=== PATIENT | female | born 1985 | race Caucasian/White ===

== ENCOUNTER 2017-04-04 13:49 | Emergency (ER) | payer OTHER ==
[~2017-04-04] VITALS: Ht 172.7 cm; Wt 68.2 kg
[~2017-04-04 13:49] MED LIST: HYDROCODONE; IBUPROFEN; OXYCODONE; TYLENOL
[2017-04-04 14:00] VITALS: BP 195/116; PULSE 75; RESP 16; O2SAT 100
--- NOTE | 2017-04-04 14:57 | ED.REPORT ---
HPI-Chest Pain Under 40 Date of Service April 04, 2017 ED Provider: Mesfin Escobar DO Pt is a 31 y.o. female with a hx of anxiety who presents to the ED from c/o intermittent chest pain described as tightness onset last night. Pt reports associated dizziness and elevated BP. She states that she took an extra propranolol today, she takes 20MG BID, for her elevated BP (178/110) and it did not improve her BP. She denies feelings of anxiety. Nursing Notes Stated Complaint: CHEST TIGHTNESS/HIGH BLOOD PRESSURE Chief Complaint: Chest Pain Nursing Notes Reviewed: Yes Allergies: Uncoded Allergies: MONOSTAT (Allergy, Unknown, 11/20/15) Scheduled Amlodipine (Amlodipine) 5 Mg Tablet 5 MG PO DAILY Scheduled PRN ([Hydrocodone 4 Tsp]) Q4 PRN PRN ([Oxycodone 2 Tsp ]) Q4 PRN PRN ([Ibuprofen 8TSP]) Q6 PRN PRN ([Tylenol 3 Tsp]) Q4 PRN PRN General Time Seen by MD: 14:57 Chief Complaint Chest pain Hx Obtained From: Patient Arrived By: Walk-in Sudden in Onset?: Yes Onset Occurred: Yesterday Symptom Duration: Intermittent Location: : Substernal Quality: Painful (Tightness) Severity: Current: Mild Past Medical History Past Medical History none reported Past Surgical History none reported Social History Alcohol Use: Denies alcohol use Drug Use: Denies drug use Ambulatory Status Independent Review of Systems Elevated BP Neurologic: Reports: Dizziness Psychiatric: Denies: Anxiety Complete sys rev & neg: except as marked. Physical Exam Initial Vital Signs Vital Signs (First) Date Time Temp Pulse Resp B/P Pulse Ox O2 Delivery O2 Flow Rate FiO2 04/04/17 14:00 37 75 16 195/116 100 Room Air Initial VS: Reviewed Head / Eyes: Atraumatic, Normocephalic Abdomen / GI: No distention Extremities: Vascular intact, Neuro intact Skin: Warm, Dry, No cyanosis Neurologic: Alert, Oriented, Nonfocal Psychiatric: Mood/affect normal, Behavior normal, Normal thought content General/Constitutional: Awake, Alert, No acute distress, Well appearing, Well developed, Well hydrated, Well nourished, Not toxic appearing Respiratory / Chest: Atraumatic, Breath sounds NL, Breath sounds = bilat, No respiratory distress Cardiovascular: Heart rate NL, Regular rhythm, Heart sounds NL, Peripheral circulation NL Interpretation & Diagnostics Lab Results Interpretation Result Diagram: 04/04/17 1520 04/04/17 1520 Test 04/04/17 15:20 White Blood Count 9.0th/mm3 (3.8-10.1) Red Blood Count 4.31mil/mm3 (3.90-5.20) Hemoglobin 13.1g/dL (12.0-15.6) Hematocrit 38.5% (35.0-46.0) Mean Corpuscular Volume 89.3fL (81-100) Mean Corpuscular Hemoglobin 30.4pg (27.0-35.0) Mean Corpuscular Hemoglobin Concent 34.0% (32.0-37.0) Red Cell Distribution Width 12.2% (12.3-15.4) Platelet Count 191bil/L (150-400) Neutrophils (%) (Auto) 66.1% (40-74) Lymphocytes (%) (Auto) 22.7% (14-46) Monocytes (%) (Auto) 7.0% (4-12) Eosinophils (%) (Auto) 3.1% (0-5) Basophils (%) (Auto) 1.0% (0-3) Sodium Level 139mEq/L (134-144) Potassium Level 3.5mEq/L (3.5-5.2) Chloride Level 102mEq/L (97-108) Carbon Dioxide Level 22mmol/L (18-29) Blood Urea Nitrogen 18mg/dL (6-20) Creatinine 0.55mg/dL (0.57-1.00) Estimat Glomerular Filtration Rate 186mL/min (>59) Glucose Level 127mg/dL (60-99) Calcium Level 9.3mg/dL (8.5-10.1) Magnesium Level 2.2mg/dL (1.6-2.6) Total Bilirubin 0.4mg/dL (0.0-1.2) Aspartate Amino Transf (AST/SGOT) 24U/L (0-50) Alanine Aminotransferase (ALT/SGPT) 21U/L (0-32) Alkaline Phosphatase 62U/L (25-150) Troponin T < 0.010ug/L (0.0-0.011) Total Protein 7.2g/dL (6.4-8.4) Albumin 4.2g/dL (3.4-5.0) Hold Ozuna Top Tube Received (Received) ECG Interpretation Time: 14:59 Interpreted by: ED physician Normal ECG Interpretation: Normal rate (79), Normal sinus rhythm Re-Eval/Medical Decision Med Decision/Clinical Course 31-year-old female with history of anxiety and hypertension, currently on propranolol 20 mg twice a day presents from urgent care after she noticed some chest tightness and elevated blood pressure home. Taking a second dose of her propranolol did not resolve her blood pressure. EKG is normal. Troponin, CBC, and CMP are normal. Patient appears anxious. She is given Ativan 1 mg orally. I also advised that she double her propranolol dose as she is on a very low dose currently. She took 40 mg orally in the ER and blood pressure came down into the 140s. She is feeling much better and wanted to go home. She is discharged with instructions to double her propranolol and follow up with her PCP next week. Source of Hx: Old records Re-Evaluation/Progress : Time of Eval: 16:45 Patient Status: Condition improved Re-Evaluation/Progress Note: Pt rechecked. Discussed lab results. Pt denies current SOB and chest pain. Discussed plan for discharge, pt udnerstands and agrees with plan. Counseled Regarding: Diagnosis, Lab results, Need for follow-up, When/why to return to ED Discharge & Departure Primary Impression: Hypertension Hypertension type: essential hypertension Qualified Code: I10 - Essential ( primary) hypertension Additional Impression: Chest pain of uncertain etiology Disposition: Home Discharge Condition All VS Reviewed: Yes Condition: Improved Patient Instructions: Chest Pain (ED) Additional Instructions: Thank you for entrusting us with your care today. Your lab results are reassuring and I did not find any concerning cause for your chest pain and elevated blood pressure today. I recommend you take 40mg of your propranolol twice a day until you follow-up with your primary care provider. Call your primary care provider Thursday to schedule a follow-up appointment. Return if your blood pressure is uncontrolled, you have increasing chest pain, or any new or worsening symptoms. Referrals: Christi Erickson DO (PCP) Scribe Attestation Portions of this note were transcribed by Marilu Boyer. IDr. Escobar personally performed the history, physical exam and medical decision-making; I reviewed and confirmed the accuracy of the information in the transcribed note. Signed by: Thor Rueda, 04/04/17 and [id number] copies to: Christi Erickson Gary R DO April 04, 2017 14:57 MARILU BOYER April 04, 2017 15:44
[2017-04-04 15:27] LABS: EOSINOPHILS % (AUTO) 3.1 % (0-5); Mean Corpuscular Hemoglobin 30.4 pg (27.0-35.0); Mean Corpuscular Volume 89.3 fL (81-100); NEUTROPHILS % (AUTO) 66.1 % (40-74); Platelet Count 191 bil/L (150-400)
[2017-04-04 15:58] LABS: TROPONIN T < 0.010 ug/L (0.0-0.011)
[2017-04-04 16:09] LABS: Magnesium 2.2 mg/dL (1.6-2.6)
[2017-04-04] MEDS ORDERED: Labetalol 5 mg/mL 4 mL Inj IVPUSH ONE (16:30)
[2017-04-04] MEDS ORDERED: LORazepam 1 mg Tablet PO ONE (17:40)
[2017-04-04 18:44] VITALS: BP 147/95; PULSE 74; RESP 16; O2SAT 94
[2017-04-05] MEDS ORDERED: AMLO5TAB2 PO (13:20)
== END 2017-04-04 18:47 | disposition home or self-care (01) ==
LOC: SED 13:49
DX: I10 Essential (primary) hypertension (principal); R07.9 Chest pain, unspecified; Z88.8 Allergy status to other drugs, medicaments and biological substances

== ENCOUNTER 2017-04-05 10:51 | Emergency (ER) | payer OTHER ==
[~2017-04-05] VITALS: Ht 172.7 cm; Wt 68.2 kg
[2017-04-05 11:02] VITALS: BP 212/127; PULSE 76; RESP 17; O2SAT 100
--- NOTE | 2017-04-05 11:11 | ED.REPORT ---
HPI-General Illness Date of Service April 05, 2017 ED Provider: IonAlberto Suh DO 31 y/o with a hx of HTN presents to the ED complaining of high blood pressure and intermittent chest pain, onset yesterday. Pt came to the ER yesterday for elevated BP and chest tightness, where she was advised to continue taking her Propranolol. She took 80 mg propranolol today, with no change in her BP and intermittent chest tightness. The pt reports she feels a burning sensation on the right side of her chest and tightness of the left side, similar to muscle cramps. Her pain typically lasts for 5-15 minutes and is exacerbated with light activity and improves with laying down. Pt also complains of a headache that lasted a couple of hours this morning but has now resolved. She denies vomiting , abdominal pain, diaphoresis, SOB, chest pain upon palpation and lower extremity swelling. Pt's father had an [place] at age 60. Nursing Notes Stated Complaint: RETURN FOR HIGH BP,INTERMITTENT CHEST TIGHTNESS Chief Complaint: General Complaint Nursing Notes Reviewed: Yes Allergies: Uncoded Allergies: MONOSTAT (Allergy, Unknown, 11/20/15) Scheduled Amlodipine (Amlodipine) 5 Mg Tablet 5 MG PO DAILY Scheduled PRN ([Hydrocodone 4 Tsp]) Q4 PRN PRN ([Oxycodone 2 Tsp ]) Q4 PRN PRN ([Ibuprofen 8TSP]) Q6 PRN PRN ([Tylenol 3 Tsp]) Q4 PRN PRN General Time Seen by MD: 11:08 Chief Complaint Other (High BP) Hx Obtained From: Patient Arrived By: Walk-in Sudden in Onset?: No Onset Occurred: 1 day ago Symptom Duration: Since onset Location: : Chest Quality: Painful Radiation: : Does not radiate Severity: Current: Mild Severity: Maximum: Mild Recent Healthcare: Recent doctor visit Similar Sx Previous: Yes Past Medical History Past Medical History none reported Past Surgical History none reported Family History Pt's father had [place] at age 60 Smoking History Current Some Day Smoker Social History Alcohol Use: "Social" Drug Use: Denies drug use Ambulatory Status Independent Review of Systems Reports: High BP Full Review of Systems Respiratory: Denies: Shortness of breath Cardiovascular: Reports: Chest pain, Denies: Edema GI: Denies: Abdominal pain, Nausea, Vomiting Skin: Denies Diaphoresis Neurologic: Reports: Headache Complete sys rev & neg: except as marked. Physical Exam +Hypertension Vital Signs Vital Signs Date Time Temp Pulse Resp B/P Pulse Ox O2 Delivery O2 Flow Rate FiO2 04/05/17 13:47 68 17 143/80 99 Room Air 04/05/17 13:01 77 18 149/86 100 Room Air 04/05/17 12:35 66 14 138/74 98 Room Air 04/05/17 12:15 72 25 173/120 100 04/05/17 12:14 84 18 183/111 100 04/05/17 11:02 76 17 212/127 100 Room Air Initial VS: Reviewed Head / Eyes: Atraumatic, Normocephalic, PERRL ENT: Mucous membranes moist, Conjunctiva normal, No scleral icterus Neck: Supple, Non-tender, Full range of motion Respiratory: Breath sounds normal, Clear to auscultation, No respiratory distress Cardiovascular: Regular rate & rhythm, Heart sounds normal, Intact distal pulses Abdomen / GI: Soft, Non-tender, No guarding, No rebound, No distention Extremities: Vascular intact, Neuro intact, No swelling, No tenderness Skin: Warm, Dry, No cyanosis Psychiatric: Mood/affect normal, Behavior normal, Normal thought content General/Constitutional: Awake, Alert, Cooperative, Not toxic appearing Neurologic: Oriented X3, Speech NL, No motor deficits, No sensory deficits Passed road test. Interpretation & Diagnostics Lab Results Interpretation Result Diagram: 04/05/17 1150 Test 04/05/17 11:50 04/05/17 12:15 D-Dimer < 0.50mg/L FEU (<0.50) Sodium Level 141mEq/L (134-144) Potassium Level 3.9mEq/L (3.5-5.2) Chloride Level 104mEq/L (97-108) Carbon Dioxide Level 23mmol/L (18-29) Blood Urea Nitrogen 13mg/dL (6-20) Creatinine 0.47mg/dL (0.57-1.00) Estimat Glomerular Filtration Rate 223mL/min (>59) Glucose Level 82mg/dL (60-99) Calcium Level 9.3mg/dL (8.5-10.1) Magnesium Level 2.1mg/dL (1.6-2.6) Total Bilirubin 0.4mg/dL (0.0-1.2) Aspartate Amino Transf (AST/SGOT) 19U/L (0-50) Alanine Aminotransferase (ALT/SGPT) 18U/L (0-32) Alkaline Phosphatase 59U/L (25-150) Troponin T 0.010ug/L (0.0-0.011) Pro-B-Type Natriuretic Peptide 194.7pg/mL (0-130) Total Protein 7.2g/dL (6.4-8.4) Albumin 4.1g/dL (3.4-5.0) Hold Urine Received (Received) ECG Interpretation ECG Interpretation: Normal Sinus rhtyhm. Rate 74 ST elevation Time: 11:40 Interpreted by: ED physician X-Ray Chest Interpretation Chest Xray Interpretation: IMPRESSION: No acute process. Dictated by: Ruperto Gaxiola M.D. on 04/05/2017 at 12:07 Approved by: Ruperto Gaxiola M.D. on 04/05/2017 at 12:07 View: Portable, AP & lat Interpretation / Wet Read by: Interpret - Radiologist Re-Eval/Medical Decision Med Decision/Clinical Course Hypertension with associated chest pain, her EKG and repeat troponin today is normal, we did discuss hospitalization on however her blood pressures normalized now and she ambulated without recurrent chest pain. Discussed briefly with cardiology. He agrees with discharge plan and will have patient follow up closely with PCP and cardiology. Return and follow-up precautions given. Source of Hx: Old records Time of Eval: 13:12 Patient Status: Condition improved Re-Evaluation/Progress Note: Rechecked pt. Discussed lab and imaging results and diagnosis. Informed the pt of the plan to discharge. Pt understands and agrees with plan. F/U instructions and RTER warning given. All questions addressed. Consultation #1: Referral / Consult Name: Viviane Carlson MD Consulted With: Cardiology Call Returned at: 12:29 Chef French: Agrees with eval, Agrees with plan Consultation #2: Referral / Consult Name: Viviane Carlson MD Consulted With: Cardiology Call Returned at: 13:21 Chef French: Agrees with plan Note: Updated Dr. Carlson on pt's status. Dr. Carlson agrees with the plan to discharge the pt. Counseled Regarding: Diagnosis, Lab results, Need for follow-up, When/why to return to ED Discharge & Departure Primary Impression: Hypertension Hypertension type: unspecified secondary hypertension Qualified Code: I15.9 - Secondary hypertension, unspecified Additional Impression: Chest pain of uncertain etiology Disposition: Home Discharge Condition All VS Reviewed: Yes Patient Instructions: Chronic Hypertension (ED) Additional Instructions: Your lab and imaging results were reassuring. Your blood pressure significantly improved while you were in the emergency department after aspirin and clonidine. Begin taking amlodipine daily. Follow up with your mercury cracking tester for further evaluation. Return to the emergency department in case of new or worsening symptoms. Referrals: Christi Erickson DO (PCP) Meredithibe Attestation Portions of this note were transcribed by Ml Worthy. I, , personally performed the history, physical exam and medical decision-making;I reviewed and confirmed the accuracy of the information in the transcribed note. Signed by Thor Calvin. 04/05/17 0125 copies to: Christi Erickson Timothy S DO April 05, 2017 11:11 Ml Worthy April 05, 2017 11:18
[2017-04-05] MEDS ORDERED: cloNIDine 0.1 mg Tablet PO ONE (11:20)
--- NOTE | 2017-04-05 12:08 | DRSVH ---
PROCEDURE: X-RAY CHEST, TWO VIEWS ([id number]) INDICATIONS: chest pain TECHNIQUE: 2 views of the chest were acquired. COMPARISON: None. FINDINGS: Surgical changes and devices: None. Lungs and pleura: No pleural effusions or pneumothorax. Lungs are clear. Mediastinum: Mediastinal contours are normal. Heart size is normal. Bones and chest wall: No suspicious bony abnormalities. Soft tissues appear unremarkable. IMPRESSION: No acute process. Dictated by: Ruperto Gaxiola M.D. on 04/05/2017 at 12:07 Approved by: Ruperto Gaxiola M.D. on 04/05/2017 at 12:07
[2017-04-05 12:14] VITALS: BP 183/111; PULSE 84; RESP 18; O2SAT 100
[2017-04-05 12:15] VITALS: BP 173/120; PULSE 72; RESP 25; O2SAT 100
[2017-04-05 12:35] VITALS: BP 138/74; PULSE 66; RESP 14; O2SAT 98
[2017-04-05] MEDS ORDERED: Labetalol 5 mg/mL 4 mL Inj IVPUSH ONE (12:35)
[2017-04-05 12:51] LABS: TROPONIN T 0.01 ug/L (0.0-0.011)
[2017-04-05 13:01] VITALS: BP 149/86; PULSE 77; RESP 18; O2SAT 100
[2017-04-05 13:02] LABS: Magnesium 2.1 mg/dL (1.6-2.6)
[2017-04-05] MEDS ORDERED: AMLO5TAB2 PO (13:20)
[2017-04-05 13:47] VITALS: BP 143/80; PULSE 68; RESP 17; O2SAT 99
== END 2017-04-05 13:20 | disposition home or self-care (01) ==
LOC: SED 10:51
DX: I15.9 Secondary hypertension, unspecified (principal); R07.9 Chest pain, unspecified; F17.200 Nicotine dependence, unspecified, uncomplicated; Z88.8 Allergy status to other drugs, medicaments and biological substances

== ENCOUNTER 2017-07-10 10:25 | Emergency (ER) | payer OTHER ==
[~2017-07-10] VITALS: Ht 172.7 cm; Wt 62.7 kg
[2017-07-10] VITALS (7 sets, daily range): BP systolic 137–215; BP diastolic 84–135; PULSE 59–72; RESP 13–19; O2SAT 97–100
[~2017-07-10 10:25] MED LIST changes: +AMLO5TAB2 PO
--- NOTE | 2017-07-10 10:50 | ED.REPORT ---
HPI-General Illness Date of Service Jul 10, 2017 ED Provider: Shawn Harjinder Patient is a 32 year old female with a hx of HTN, chronic Lyme disease, and a brain stem lesion who presents to the ED from complaining of blurry vision upon waking at 0300 this morning and her blood pressure of 215/123. Associated symptoms include diplopia. She denies headache, weakness, numbness, chest pain, SOB, or any other symptoms. She has struggled with hypertension for the last 15 months and measured her BP at 175/120 this morning. She was started on propranolol and amlodipine was added. Her propranolol is now being tapered and the amlodipine was discontinued. Her PCP is Dr. Erickson and Neurologist is Dr. Lovelace. Nursing Notes Stated Complaint: BP Chief Complaint: General Complaint Nursing Notes Reviewed: Yes Allergies: Uncoded Allergies: MONOSTAT (Allergy, Unknown, 11/20/15) Scheduled Amlodipine (Amlodipine) 5 Mg Tablet 5 MG PO DAILY Scheduled PRN ([Hydrocodone 4 Tsp]) Q4 PRN PRN ([Oxycodone 2 Tsp ]) Q4 PRN PRN ([Ibuprofen 8TSP]) Q6 PRN PRN ([Tylenol 3 Tsp]) Q4 PRN PRN General Time Seen by MD: 10:49 Chief Complaint Dizziness Hx Obtained From: Patient Arrived By: Walk-in Sudden in Onset?: Yes Onset Occurred: 5 - 8 hours ago Symptom Duration: Since onset Past Medical History Past Medical History Brain stem lesion HTN Chronic Lyme disease Past Surgical History none reported Family History Pt's father had [place] at age 60 Smoking History Current Some Day Smoker Social History Alcohol Use: "Social" Drug Use: Denies drug use Ambulatory Status Independent Review of Systems Full Review of Systems Eyes: Reports: Blurred bilateral, Diplopia Respiratory: Denies: Shortness of breath Cardiovascular: Denies: Chest pain Neurologic: Denies: Headache, Numbness, Weakness Complete sys rev & neg: except as marked. Physical Exam Vital Signs Vital Signs Date Time Temp Pulse Resp B/P Pulse Ox O2 Delivery O2 Flow Rate FiO2 07/10/17 15:21 69 16 143/84 99 Room Air 07/10/17 14:48 70 16 143/84 99 Room Air 07/10/17 14:06 69 19 137/85 98 Room Air 07/10/17 13:04 72 15 145/97 97 Room Air 07/10/17 11:37 59 13 155/100 99 Room Air 07/10/17 11:11 17 215/123 100 Room Air 07/10/17 10:42 37.1 68 16 207/135 100 Room Air Initial VS: Reviewed, Vital signs abnormal Neck: Full range of motion Respiratory: Breath sounds normal, Clear to auscultation, No respiratory distress Cardiovascular: Regular rate & rhythm, Heart sounds normal, Intact distal pulses Abdomen / GI: Soft, Non-tender Skin: Warm, Dry Neurologic: Alert, Oriented, Nonfocal Psychiatric: Mood/affect normal, Behavior normal, Normal thought content General/Constitutional: Awake, Alert, No acute distress Head / Eyes: Atraumatic, Normocephalic, PERRL, EOMI Interpretation & Diagnostics Lab Results Interpretation Result Diagram: 07/10/17 1253 07/10/17 1253 Test 07/10/17 12:53 White Blood Count 6.5th/mm3 (3.8-10.1) Red Blood Count 4.18mil/mm3 (3.90-5.20) Hemoglobin 13.1g/dL (12.0-15.6) Hematocrit 38.7% (35.0-46.0) Mean Corpuscular Volume 92.6fL (81-100) Mean Corpuscular Hemoglobin 31.3pg (27.0-35.0) Mean Corpuscular Hemoglobin Concent 33.9% (32.0-37.0) Red Cell Distribution Width 12.0% (12.3-15.4) Platelet Count 196bil/L (150-400) Neutrophils (%) (Auto) 62.2% (40-74) Lymphocytes (%) (Auto) 22.9% (14-46) Monocytes (%) (Auto) 11.0% (4-12) Eosinophils (%) (Auto) 2.9% (0-5) Basophils (%) (Auto) 0.8% (0-3) Sodium Level 140mEq/L (134-144) Potassium Level 4.2mEq/L (3.5-5.2) Chloride Level 103mEq/L (97-108) Carbon Dioxide Level 23mmol/L (18-29) Blood Urea Nitrogen 15mg/dL (6-20) Creatinine 0.49mg/dL (0.57-1.00) Estimat Glomerular Filtration Rate 211mL/min (>59) Glucose Level 90mg/dL (60-99) Calcium Level 9.1mg/dL (8.5-10.1) Magnesium Level 2.2mg/dL (1.6-2.6) Total Bilirubin 0.4mg/dL (0.0-1.2) Aspartate Amino Transf (AST/SGOT) 24U/L (0-50) Alanine Aminotransferase (ALT/SGPT) 24U/L (0-32) Alkaline Phosphatase 61U/L (25-150) Troponin T 0.010ug/L (0.0-0.011) Total Protein 7.1g/dL (6.4-8.4) Albumin 4.4g/dL (3.4-5.0) ECG Interpretation ECG Interpretation: Sinus rate 65 ST elevation in V2 and V3, consistent with early repolarization pattern, unchanged from previously Time: 11:46 Interpreted by: ED physician Re-Eval/Medical Decision Med Decision/Clinical Course 32-year-old female with a history of what sounds to be essential hypertension ( patient is unaware of any secondary causes) that has been treated with amlodipine and propranolol. Her blood pressures had been good and amlodipine was stopped and she was in the process of tapering down her propranolol. Her symptoms began today upon awakening when she noticed that her blood pressures were significantly elevated more than previous. Here her blood pressure was 215 /123. She cannot identify any triggers and has been taking her medication. All of her neurologic symptoms resolved today with lowering her blood pressure. I used amlodipine 10 mg and Nitropaste 1 inch. I advised that she restart her amlodipine and follow up with her PCP to discuss a plan further. Patient is agreeable, and happy to be feeling better. 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 Time of Eval: 14:07 Re-Evaluation/Progress Note: Rechecked patient who is feeling much better. Discussed plan for discharge. Patient understands and agrees with plan. All questions addressed at this time. Counseled Regarding: Diagnosis, Lab results, Need for follow-up, When/why to return to ED Discharge & Departure Primary Impression: Hypertensive emergency Additional Impression: Hypertension Hypertension type: essential hypertension Qualified Code: I10 - Essential ( primary) hypertension Disposition: Home Discharge Condition All VS Reviewed: Yes Condition: Improved Patient Instructions: Chronic Hypertension (ED) Additional Instructions: Thank you for coming to the emergency department. Your EKG, labs, and examination are reassuring. Resume Amlodipine as prescribed until you can follow up with your primary doctor. Call this afternoon or Thursday to schedule a follow up appointment as soon as possible. Inform them of your visit today so that they may see you sooner. Return to the emergency department for any new or worsening symptoms. Referrals: Christi Erickson DO (PCP) Meredithibwei Attestation Portions of this note were transcribed by Martha Kim. I, Dr. Escobar personally performed the history, physical exam and medical decision-making; I reviewed and confirmed the accuracy of the information in the transcribed note. Signed by: Thor Mora, 07/10/17 copies to: Christi Erickson Gary R DO Jul 10, 2017 10:49 MARTHA KIM Jul 10, 2017 11:12
[2017-07-10] MEDS ORDERED: Nitroglycerin 2% 1 Gm Ointment TOPICAL ONE (11:20)
[2017-07-10 12:58] LABS: BASOPHILS % (AUTO) 0.8 % (0-3); EOSINOPHILS % (AUTO) 2.9 % (0-5); Mean Corpuscular Hemoglobin 31.3 pg (27.0-35.0); Mean Corpuscular Volume 92.6 fL (81-100); NEUTROPHILS % (AUTO) 62.2 % (40-74); Platelet Count 196 bil/L (150-400)
[2017-07-10 13:14] LABS: TROPONIN T 0.01 ug/L (0.0-0.011)
[2017-07-10 13:26] LABS: Magnesium 2.2 mg/dL (1.6-2.6)
== END 2017-07-10 15:22 | disposition home or self-care (01) ==
LOC: SED 10:25
DX: I10 Essential (primary) hypertension (principal); F17.200 Nicotine dependence, unspecified, uncomplicated